=== PATIENT | female | born 1975 | race Caucasian/White ===

== ENCOUNTER 2020-02-25 21:56 | Emergency (ER) | payer OTHER ==
[2020-02-25] MEDS ORDERED: diphenhydrAMINE 25 MG Cap PO ONE (23:21)
[2020-02-25] MEDS ORDERED: Dexamethasone 4 MG Tab PO ONE (23:22)
--- NOTE | 2020-02-25 23:28 | EDM.PDOC ---
ED HPI GENERAL MEDICAL PROBLEM - General Stated Complaint: BREAKING OUT Time Seen by Provider: 02/25/20 23:13 Source of Information: Reports: Patient - History of Present Illness INITIAL COMMENTS - FREE TEXT/NARRATIVE: Christal is a 44 y/o female who comes to the ER tonight with facial swelling. She was exposed to lice about a week ago from her grandson and she did a permetherin shampoo, then about 2 days ago she colored her hair to help decrease her chances of the lice. About 2 days ago, a neighbor remarked that her face was swollen and she started to take Zyrtec, but [facility] she looked in [facility] and her face was more swollen and her ears were even swollen so she came here to be seen. Denies every having this happen in the past, but then she has never used the permetherin before. She denies any other allergies or any difficulty breathing. - Related Data Home Meds: Home Meds methylPREDNISolone [Medrol] 4 mg PO ASDIRECTED #21 dospk 02/25/20 [Rx] Review of Systems - Review of Systems Review Of Systems: See Below Constitutional: Reports: No Symptoms Eyes: Reports: Other (swelling) Ears: Reports: Other (swelling) Nose: Reports: No Symptoms Mouth/Throat: Reports: Tongue Swelling, Throat Swelling Respiratory: Reports: No Symptoms Cardiovascular: Reports: No Symptoms GI/Abdominal: Reports: No Symptoms Genitourinary: Reports: No Symptoms Skin: Reports: No Symptoms Neurological: Reports: No Symptoms Psychiatric: Reports: No Symptoms ED EXAM, GENERAL - Physical Exam Exam: See Below Exam Limited By: No Limitations General Appearance: Alert, WD/WN, No Apparent Distress (Adult female) Eye Exam: Bilateral Eye: PERRL, Other (Note swellign under bother eyes and eyelids.) Ears: Normal Canal, Hearing Grossly Normal, Normal TMs, Other (Note bilateral external ears swollen, R>L) Nose: Normal Inspection, Normal Mucosa Throat/Mouth: Normal Lips, Normal Voice, Other (Tongue swollen and tonsils enlarged) Head: Atraumatic, Normocephalic Neck: Normal Inspection, Supple, Non-Tender Respiratory/Chest: No Respiratory Distress, Lungs Clear, Chest Non-Tender Cardiovascular: Normal Peripheral Pulses, Regular Rate, Rhythm GI/Abdominal: Normal Bowel Sounds, Soft (Female) Exam: Deferred Rectal (Female) Exam: Deferred Back Exam: Normal Inspection Extremities: Normal Inspection, Normal Range of Motion, Normal Capillary Refill Neurological: Alert, Oriented, CN II-XII Intact, Normal Cognition, Normal Gait Psychiatric: Normal Affect, Normal Mood Skin Exam: Warm, Dry, Intact, Normal Color Lymphatic: No Adenopathy Course - Vital Signs Text/Narrative:: 2317 The patient was seen by the PRODUCE DEPARTMENT SUPERVISOR. No labs were done. She declined any IV or IM medications. Benadryl 50mg po and Dexamethasone 8mg po were given in the ER. 0010 Patient stable. No side effects from meds. Swellins around eyes slightly less. Patient was given discharge instructions by PRODUCE DEPARTMENT SUPERVISOR. Questions answered. She remained stable and then left the ER in good condition after RN gave written instructions. - Orders/Labs/Meds Meds: Medications Discontinued Medications Generic Name Dose Route Start Last Admin Trade Name Emmy PRN Reason Stop Dose Admin Dexamethasone 8 mg 02/25/20 23:22 02/25/20 23:34 Dexamethasone PO 02/25/20 23:23 Not Given ONETIME ONE Dexamethasone 8 mg 02/25/20 23:29 02/25/20 23:34 Dexamethasone PO 02/25/20 23:30 8 mg ONETIME ONE Administration Diphenhydramine HCl 50 mg 02/25/20 23:21 02/25/20 23:30 Benadryl PO 02/25/20 23:22 50 mg ONETIME ONE Administration Departure - Departure Time of Disposition: 00:23 Disposition: Home, Self-Care 01 Condition: Good Clinical Impression: Angioedema - Discharge Information *PRESCRIPTION DRUG MONITORING PROGRAM REVIEWED*: No *COPY OF PRESCRIPTION DRUG MONITORING REPORT IN PATIENT KOURTNEY: No Prescriptions: methylPREDNISolone [Medrol] 4 mg PO ASDIRECTED #21 dospk Instructions: Angioedema Referrals: Griffin Hester PA-C [Primary Care Provider] - - Assessment/Plan Assessment:: 1)Angioedema Plan: -Medrol Dose Pack 4mg oral as directed by package #21(Rx). Pick this up tomorrow at the pharmacy and start as directed. -Diphenhydramine (Benadryl_ 25-50mg oral every 6 hours x 48 hours then every 6 hours as needed. (Use over the counter meds.) -Avoid any further use of Permetherin shampoo. -Follow up with your PCP if your symptoms are not improving or return to the ER. -Make an appointment to see your PCP for recheck in 1 week.
[2020-02-25] MEDS ORDERED: Dexamethasone 4 MG/ML SDV PO ONE (23:29)
== END 2020-02-26 00:33 | disposition home or self-care (01) ==
LOC: VM.ED 21:56
DX: T78.3XXA Angioneurotic edema, initial encounter (principal)
CPT/HCPCS: 99283; A9270; J1100

== ENCOUNTER 2020-03-04 21:00 | Emergency (ER) | payer OTHER ==
--- NOTE | 2020-03-04 21:25 | EDM.PDOC ---
ED HPI GENERAL MEDICAL PROBLEM - General Chief Complaint: General Stated Complaint: Itching, hives Time Seen by Provider: 03/04/20 21:15 Source of Information: Reports: Patient History Limitations: Reports: No Limitations - History of Present Illness INITIAL COMMENTS - FREE TEXT/NARRATIVE: Patient comes emergency department today from home with complaints of a very itchy and irritated scalp. This patient over the past 2 weeks has used a lice Nix treatment at home for the concerns of lice. She also had a very aggressive hair dying session with her beautician. Since that time she has had severe itching to her scalp. She just recently stopped a Solu-Medrol Dosepak that she received from the ER due to the irritation in her scalp. Really did not do much for her itching. Is getting to the point where she cannot take it anymore and it is difficult for her to sleep. No one else in the family has lice. No fever no chills. She has tried no other therapy for her very itchy irritated scalp. No COVID exposure no COVID symptoms. Has had no shortness of breath difficulty breathing or swallowing. No drooling. - Related Data Allergies Allergy/AdvReac Type Severity Reaction Status Date / Time No Known Allergies Allergy Verified 03/05/20 01:37 Home Meds: Home Meds Levothyroxine 25 mcg PO ACBREAKFAST 02/26/20 [History] hydrOXYzine HCL [Atarax] 25 mg PO Q6H #12 tab 03/04/20 [Rx] Past Medical History - Past Health History Medical/Surgical History: Denies Medical/Surgical History Social & Family History - Family History Family Medical History: Noncontributory - Caffeine Use Caffeine Use: Reports: None ED ROS GENERAL - Review of Systems Review Of Systems: Comprehensive ROS is negative, except as noted in HPI. ED EXAM, GENERAL - Physical Exam Exam: See Below Exam Limited By: No Limitations General Appearance: Alert, WD/WN, No Apparent Distress Eye Exam: Bilateral Eye: EOMI, PERRL Ears: Normal External Exam, Normal TMs Nose: Normal Inspection Throat/Mouth: Normal Inspection Head: Atraumatic, Normocephalic, Other (Examination of the scalp. There is no erythema induration exudate. There is no sign of parasite infection. The patient's skin is very dry cracked and flaking throughout the entire to the scalp. There is no isolation of the irritation it is completely involved in the hairline. No alopecia. There are no hives. There is no exudate.) Neck: Normal Inspection Respiratory/Chest: No Respiratory Distress, Lungs Clear Cardiovascular: Normal Peripheral Pulses, Regular Rate, Rhythm Extremities: Normal Inspection Neurological: Alert, Oriented Psychiatric: Normal Affect, Normal Mood Skin Exam: Warm, Dry, Intact Course - Vital Signs Last Recorded V/S: Last Vital Signs Temp 98.3 F 03/04/20 21:00 Pulse 78 03/04/20 21:00 Resp 16 03/04/20 21:00 BP 116/71 03/04/20 21:00 Pulse Ox 99 03/04/20 21:00 - Orders/Labs/Meds Meds: Medications Discontinued Medications Generic Name Dose Route Start Last Admin Trade Name Freq PRN Reason Stop Dose Admin Hydroxyzine HCl 25 mg 03/04/20 21:25 03/04/20 21:34 Atarax PO 03/04/20 21:26 25 mg ONETIME ONE Administration - Re-Assessments/Exams Free Text/Narrative Re-Assessment/Exam: 03/05/20 09:14 I explained to the patient that there is clearly no infectious process going on. This is more of a dermatitis most likely caused by the repeated insult to the scalp caused by the NIX as well as the hair dying process. This really appears to be like a contact dermatitis that is caused some very drying of the scalp. I do not think any steroids or can help with this issue hydration is good to be paramount at this time. We will have her try head and shoulders dandruff s hampoo as well as lotion on the scalp. I will try some oxazine to help with the itching and see if this helps with her sleep. This is not improving she needs to see dermatology. Patient is understanding of this and her questions are answered. Departure - Departure Time of Disposition: : Disposition: Home, Self-Care 01 Clinical Impression: Dermatitis - Discharge Information Prescriptions: hydrOXYzine HCL [Atarax] 25 mg PO Q6H #12 tab Instructions: Eczema Referrals: PCP,Unobtain [Ordering Only Provider] - Forms: ED Department Discharge Additional Instructions: Try for the scalp irritation Head and Shoulders dandruff to see if this helps the irritation of the scalp. Speak with your director hair as well to get ideas for hydration of the scalp to help with the irritation. Hydroxyzine 1 tablet every 6hrs as needed for itching or irritation. Caution sedation. RX given to the patient. I would also try some creams such as Eucerin or Vanicream right to the scalp to help with hydration. I believe this will do more than the hydroxyzine for the itching. Return to the ED if new or worsening symptoms. Follow up with PCP, not the ED in a week if continued concerns. You may continue the Zyrtec as well to help with the itching.
[2020-03-04] MEDS: hydrOXYzine HCl 25 MG Tab PO ONE (21:34)
== END 2020-03-04 21:45 | disposition home or self-care (01) ==
LOC: VM.ED 21:00
DX: L30.9 Dermatitis, unspecified (principal)
CPT/HCPCS: 99282; A9270-GY

== ENCOUNTER 2020-10-07 14:57 | Emergency (ER) | payer OTHER ==
--- NOTE | 2020-10-07 16:12 | EDM.PDOC ---
ED HPI GENERAL MEDICAL PROBLEM - General Stated Complaint: LACERATIONS Time Seen by Provider: 10/07/20 16:12 Source of Information: Reports: Patient History Limitations: Reports: No Limitations - History of Present Illness INITIAL COMMENTS - FREE TEXT/NARRATIVE: Patient comes emergency department today with injury to her hand and her knees. Just prior to arrival the patient was actually responding with her son who had injured his arm with a chainsaw when they intercepted with the ambulance. She got out of the car to go to the ambulance to help get her son into the ambulance when she tripped on the concrete and fell. When she fell she had outstretched right hand and injured her right fifth finger on the metatarsal area. She did not hit her head. There was no loss of conscious. She did sustain some abrasions to her bilateral knees. She denies any other pain other than the abrasions to her bilateral knees and her right hand. She relates that her tetanus immunization is up-to-date. She has no other injuries. She is able to ambulate without difficulty and states that her knees are fine other than some road rash. - Related Data Allergies Allergy/AdvReac Type Severity Reaction Status Date / Time No Known Allergies Allergy Verified 03/05/20 01:37 Home Meds: Home Meds Levothyroxine 25 mcg PO ACBREAKFAST 02/26/20 [History] hydrOXYzine HCL [Atarax] 25 mg PO Q6H #12 tab 03/04/20 [Rx] Past Medical History - Past Health History Medical/Surgical History: Denies Medical/Surgical History Endocrine/Metabolic History: Reports: Hypothyroidism Social & Family History - Family History Family Medical History: No Pertinent Family History - Caffeine Use Caffeine Use: Reports: None Review of Systems - Review of Systems Review Of Systems: Comprehensive ROS is negative, except as noted in HPI. ED EXAM, GENERAL - Physical Exam Exam: See Below Exam Limited By: No Limitations General Appearance: Alert, WD/WN, No Apparent Distress Eye Exam: Bilateral Eye: EOMI Ears: Normal External Exam Nose: Normal Inspection Throat/Mouth: Normal Inspection Head: Atraumatic, Normocephalic Neck: Normal Inspection, Supple, Non-Tender. No: Tender Lateral, Tender Midline Respiratory/Chest: No Respiratory Distress, Lungs Clear, No Accessory Muscle Use, Chest Non-Tender Cardiovascular: Normal Peripheral Pulses, Regular Rate, Rhythm Peripheral Pulses: 2+: Radial (L), Radial (R), Posterior Tibial (L), Posterior Tibial (R), Dorsalis Pedis (L), Dorsalis Pedis (R) GI/Abdominal: Normal Bowel Sounds, Soft, Non-Tender Back Exam: Normal Inspection, Full Range of Motion. No: Paraspinal Tenderness, Vertebral Tenderness Extremities: Normal Range of Motion, No Pedal Edema, Normal Capillary Refill. No: Normal Inspection (She has some tenderness on the right fifth metatarsal. She has some superficial abrasions on bilateral patella. She has no joint effusion. No pain within the knee. No swelling. No bony deformity. These are superficial abrasions to bilateral knees. Normal patella slide. Negative varus valgus ) Neurological: Alert, Oriented, CN II-XII Intact, Normal Cognition, No Motor/Sensory Deficits Psychiatric: Normal Affect, Normal Mood Skin Exam: Warm, Dry, Intact, Normal Color Course - Radiology Interpretation Free Text/Narrative:: X-ray of the right hand initially reviewed extemporaneously by myself shows a fracture of the base of the fifth proximal phalanges. Nondisplaced slightly angulated. No other fracture. Radiological review to follow. - Re-Assessments/Exams Free Text/Narrative Re-Assessment/Exam: 10/07/20 17:24 The wounds that are superficial in the knee were cleansed with soap and water bacitracin was applied. I discussed with the patient that she has a minimally angulated fracture of the proximal phalange of the right fifth digit. Does not require any reduction or straightening at this time. We will place her in a baseball type splint. Follow-up with primary care in the next week for recheck. She is comfortable with this plan and her questions are answered. Departure - Departure Time of Disposition: 16:56 Disposition: Home, Self-Care 01 Clinical Impression: Multiple abrasions Finger fracture, right Qualifiers: Encounter type: initial encounter Finger: little finger Fracture type: closed Phalanx: proximal Fracture alignment: nondisplaced Qualified Code(s): S62.646A - Nondisplaced fracture of proximal phalanx of right little finger, initial encounter for closed fracture - Discharge Information Referrals: Griffin Hester PA-C [Primary Care Provider] - Additional Instructions: Cleanse abrasions twice daily with soap and water. Bacitracin and bandage until healed. Watch for signs of infection. Tylenol as needed for pain. RICE therapy per the discharge instructions for the finger. Finger splint at all times. Recheck with PCP in 1 week for recheck of the finger fracture. Return to the ED if new or worsening symptoms.
--- NOTE | 2020-10-07 17:10 | CR ---
[id number] RAD/RAD Hand Right 3V Exam: RAD Hand Right 3V Indication:FALL, TRAUMA 5TH METATARSAL. Comparison: No prior imaging for comparison. Discussion/Impression: Acute nondisplaced slightly angulated fracture of the 5th digit proximal phalanx. Remainder of the hand is unremarkable. Melvin Maza MD 10/07/20 [id number] Thank you for allowing us to participate in the care of your patient.
== END 2020-10-07 17:05 | disposition home or self-care (01) ==
LOC: VM.ED 14:57
DX: S62.646A Nondisplaced fracture of proximal phalanx of right little finger, initial encounter for closed fracture (principal); S80.212A Abrasion, left knee, initial encounter; S80.211A Abrasion, right knee, initial encounter; E03.9 Hypothyroidism, unspecified; Z79.899 Other long term (current) drug therapy; W01.0XXA Fall on same level from slipping, tripping and stumbling without subsequent striking against object, initial encounter
CPT/HCPCS: 73130-RT; 99283; 99283-25